=== PATIENT | male | born 1990 | race Caucasian/White ===

== ENCOUNTER 2016-07-04 01:57 | Emergency (ER) | payer OTHER ==
[~2016-07-04] VITALS: Ht 182.9 cm; Wt 120.7 kg
[2016-07-04 02:01] VITALS: TEMP 37.1; Ht 182.9 cm; Wt 120.7 kg
[2016-07-04] MEDS ORDERED: LIDOCAINE/EPINEPHRINE 1% 20 ML VIAL INFIL ONE (02:30)
[2016-07-04] MEDS ORDERED: NORCO 5/325MG HOME PACK PO ONE (04:15)
[2016-07-04] MEDS ORDERED: HYDR-5688 PO (04:17)
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
[2016-07-04 04:32] VITALS: BP 147/71; PULSE 111; O2SAT 93
--- NOTE | 2016-07-04 08:29 | DIAGNOSTIC IMAGING REPORT ---
CT OF THE HEAD WITHOUT CONTRAST CLINICAL HISTORY: Head injury with scalp laceration. COMPARISON STUDY: No previous studies for comparison. CT DOSE: 614.27 mGy.cm TECHNIQUE: Helical axial images of the head were obtained without IV contrast. Automated exposure control was utilized for the study. FINDINGS: No acute intracranial hemorrhage, midline shift or mass effect is present. Ventricular system is normal. Basilar cisterns are patent. There are no extra-axial collections. Hernandez-white differentiation is maintained. A left frontotemporal scalp contusion is present. There is a right frontotemporal laceration within the scalp. There is no calvarial fracture. IMPRESSION: 1. No acute intracranial findings. 2. Bilateral scalp contusions/lacerations. No calvarial fracture. Electronically signed by: Chucky Cornelius M.D. 07/04/2016 8:27 AM Dictated Date/Time: 07/04/2016 8:26 AM
== END 2016-07-04 04:33 | disposition home or self-care (01) ==
LOC: C.EDB 01:59 → C.EDA 04:33
DX: S01.01XA Laceration without foreign body of scalp, initial encounter (principal); Y08.89XA Assault by other specified means, initial encounter; F17.200 Nicotine dependence, unspecified, uncomplicated